=== PATIENT | male | born 1980 | race Hispanic/Latino ===

== ENCOUNTER 2018-05-15 16:15 | Emergency (ER) | payer SELFPAY ==
[2018-05-15] MEDS ORDERED: ATIVAN ONE (16:22)
[2018-05-15] MEDS ORDERED: KEPPRA 1,000 MG/NS 0.75% 100ML 1,000 MG/100 ML BAG IV ONE (16:41)
[2018-05-15] MEDS ORDERED: NACL 0.9% 1000 ML 1,000 ML IV ONE (16:41)
--- NOTE | 2018-05-15 16:41 | Emergency Department Report ---
ED Seizure HPI - General Chief Complaint: Seizure Stated Complaint: SEIZURE Time Seen by Provider: 05/15/18 16:31 Source: patient, EMS Mode of arrival: Stretcher Limitations: Altered Mental Status - History of Present Illness Initial Comments: Patient was brought in by the EMS with seizure activity. Patient was at [facility] where he was put on 1013 for suicidal ideation. MD Complaint: seizure -: Sudden Description of Episode: loss of consciousness, tonic-clonic movement Witnessed:: Yes Trauma: No Seizure History: known seizure disorder, history of withdrawal se Possible Precipitating Event: drug use, medication Associated Symptoms: denies other symptoms Treatments Prior to Arrival: benzodiazepines - Related Data Allergies Allergy/AdvReac Type Severity Reaction Status Date / Time chlorpromazine Allergy Unknown Verified 05/15/18 16:44 [From Thorazine] haloperidol [From Haldol] Allergy Unknown Verified 05/15/18 16:44 phenytoin [From Dilantin] Allergy Rash Verified 05/15/18 16:44 Penicillins AdvReac Rash Verified 05/15/18 16:44 ED Review of Systems ROS: Stated complaint: SEIZURE Other details as noted in HPI Comment: All other systems reviewed and negative Constitutional: denies: chills, fever Eyes: denies: eye pain ENT: denies: ear pain Respiratory: denies: cough, shortness of breath Cardiovascular: denies: chest pain, palpitations Endocrine: no symptoms reported Gastrointestinal: denies: abdominal pain, nausea, vomiting, diarrhea Genitourinary: denies: urgency, dysuria Musculoskeletal: as per HPI Skin: as per HPI Neurological: denies: headache, weakness Psychiatric: denies: anxiety, depression Hematological/Lymphatic: denies: easy bleeding, easy bruising ED Physical Exam - General Limitations: Altered Mental Status General appearance: in no apparent distress - Head Head exam: Present: atraumatic, normocephalic, normal inspection - Eye Eye exam: Present: normal appearance, PERRL, EOMI Pupils: Present: normal accommodation - ENT ENT exam: Present: normal exam, normal orophraynx, mucous membranes moist - Neck Neck exam: Present: normal inspection, full ROM. Absent: tenderness - Respiratory Respiratory exam: Present: normal lung sounds bilaterally. Absent: respiratory distress, wheezes, rales, rhonchi, stridor - Cardiovascular Cardiovascular Exam: Present: regular rate, normal rhythm, normal heart sounds - GI/Abdominal GI/Abdominal exam: Present: soft, normal bowel sounds. Absent: distended, tenderness, guarding, rebound, rigid - Extremities Exam Extremities exam: Present: normal inspection, full ROM, normal capillary refill - Back Exam Back exam: Present: normal inspection, full ROM. Absent: tenderness - Neurological Exam Neurological exam: Present: alert, oriented X3, CN II-XII intact - Psychiatric Psychiatric exam: Present: flat affect, suicidal ideation. Absent: homicidal ideation - Skin Skin exam: Present: warm, dry, intact, normal color ED Course Vital Signs 05/15/18 16:33 Temperature 98.3 F Pulse Rate 84 Respiratory 14 Rate Blood Pressure 126/81 O2 Sat by Pulse 98 Oximetry - Reevaluation(s) Reevaluation #1: 05/15/18 18:09 Patient is medically clear for psychiatric evaluation. ED Medical Decision Making - Lab Data Result diagrams: 05/15/18 16:52 05/15/18 16:52 - EKG Data -: EKG Interpreted by Me EKG shows normal: sinus rhythm Rate: normal (78) - EKG Data When compared to previous EKG there are: previous EKG unavailable Interpretation: LVH, other (No STEMI) - Radiology Data Radiology results: report reviewed, image reviewed - Medical Decision Making Seizure. Suicide Ideation. Critical care attestation.: If time is entered above; I have spent that time in minutes in the direct care of this critically ill patient, excluding procedure time. ED Disposition Clinical Impression: Seizure, Suicide ideation Disposition: DC/TX-65 PSY HOSP/PSY UNIT Is pt being admited?: No Does the pt Need Aspirin: No Condition: Stable Referrals: PRIMARY CARE, [Primary Care Provider] - 3-5 Days Time of Disposition: 18:03
[2018-05-15 16:43] VITALS: BP 126/81
[2018-05-15 17:24] LABS: Basophils # (Auto) 0.1 K/mm3 (0.0-0.1); Basophils % (Auto) 1.1 % (0.0-1.8); Eosinophils # (Auto) 0.2 K/mm3 (0.0-0.4); Eosinophils % (Auto) 4.3 % (0.0-4.3); Hematocrit 35.8 % (35.5-45.6); Mean Corpuscular HGB Conc 34 % (32-34); Mean Corpuscular Hemoglobin 29 pg (28-32); Mean Corpuscular Volume 86 fl (84-94); Monocytes # (Auto) 0.3 K/mm3 (0.0-0.8); Monocytes % (Auto) 6.1 % (0.0-7.3); Platelet Count 167 K/mm3 (140-440); Red Blood Count 4.16 M/mm3 (3.65-5.03)
[2018-05-15 17:36] LABS: Alanine Aminotransferase 21 units/L (7-56); Albumin 3.7 g/dL (3.9-5); BUN/Creatinine Ratio 11; Blood Urea Nitrogen 9 mg/dL (9-20); Calcium 8.6 mg/dL (8.4-10.2); Hemolysis Index 7
--- NOTE | 2018-05-15 18:59 | XRay Report ---
FINAL REPORT PROCEDURE: XR CHEST 1V AP TECHNIQUE: Chest radiograph anteroposterior view. HISTORY: Seizure. COMPARISON: No prior studies are available for comparison. FINDINGS: Heart: Normal. Mediastinum/Vessels: Normal. Lungs/Pleural space: Normal. Bony thorax: No acute osseous abnormality. Incompletely visualized, 2 screws may span the left proximal humerus. Life support devices: None. IMPRESSION: No radiographic evidence of acute cardiopulmonary disease.
== END 2018-05-15 20:00 ==
LOC: ED 16:15
DX: R56.9 Unspecified convulsions (principal); R45.851 Suicidal ideations; Z88.8 Allergy status to other drugs, medicaments and biological substances; Z88.0 Allergy status to penicillin
CPT/HCPCS: 36415; 71045; 80053; 85025; 93005; 93010; 99285; G0480; J2060; 80320

== ENCOUNTER 2020-02-12 17:16 | Emergency (ER) | payer SELFPAY ==
[2020-02-12] MEDS ORDERED: METOCLOPRAMIDE 10 MG TAB PO ONE (17:49)
[2020-02-12] MEDS ORDERED: levETIRAcetam 500 MG TAB PO ONE (17:49)
[2020-02-12] MEDS ORDERED: GABAPENTIN 400 MG CAP PO ONE (17:49)
--- NOTE | 2020-02-12 17:50 | Emergency Department Report ---
<VALARIE RAJPUT - Last Filed: 02/12/20 19:36> ED Seizure HPI - General Chief Complaint: Seizure Stated Complaint: SEIZURE/FROM ANCHOR Time Seen by Provider: 02/12/20 17:40 Source: patient, EMS (Verbal report received from emergency medical services. EMS documentation not available at time of chart dictation ), RN notes reviewed, old records reviewed Mode of arrival: Stretcher Limitations: No Limitations - History of Present Illness Initial Comments: Patient is a 40-year-old gentleman. He is not known to myself previously. He has a history of polysubstance abuse, currently in rehab on a voluntary basis, history of seizure disorder, supposed to be on Keppra, 1 g twice daily, reports gabapentin, 800 mg 3 times daily, and clonazepam. He ran out of his seizure medications recently. As per EMS verbal report, patient was at detox, had a generalized seizure, which was terminated with Versed. Patient reports mild frontal headache, which is not sudden or thunderclap in nature, and not the worst headache of his life. He denies fever, neck pain, chest pain, abdominal pain, shortness of breath, urinary symptoms, and he denies coronavirus risk factors and exposure. His last seizure was approximately 2 weeks ago. He is not homicidal or suicidal. MD Complaint: seizure -: Sudden Description of Episode: loss of consciousness, tonic-clonic movement -: second(s) Witnessed:: Yes Trauma: No Seizure History: known seizure disorder, other Place: other (Reportedly at rehab) Possible Precipitating Event: other (Noncompliant) Associated Symptoms: other (Mild headache) Treatments Prior to Arrival: benzodiazepines - Related Data Previous Rx's Medication Instructions Recorded Last Taken Type Gabapentin [Neurontin] 800 mg PO TID #90 tablet 02/12/20 Unknown Rx levETIRAcetam [Keppra TAB] 1,000 mg PO BID #60 tab 02/12/20 Unknown Rx Allergies Allergy/AdvReac Type Severity Reaction Status Date / Time chlorpromazine Allergy Unknown Verified 05/15/18 16:44 [From Thorazine] haloperidol [From Haldol] Allergy Unknown Verified 05/15/18 16:44 phenytoin [From Dilantin] Allergy Rash Verified 05/15/18 16:44 ondansetron [From Zofran] AdvReac Rash Verified 02/12/20 18:55 Penicillins AdvReac Rash Verified 05/15/18 16:44 ED Review of Systems Constitutional: denies: fever Eyes: denies: eye discharge ENT: denies: congestion Respiratory: denies: wheezing Cardiovascular: denies: palpitations Gastrointestinal: denies: abdominal pain Genitourinary: denies: dysuria Musculoskeletal: denies: back pain Neurological: headache. denies: as per HPI Psychiatric: denies: homicidal thoughts, suicidal thoughts ED Past Medical Hx - Past Medical History Hx Seizures: Yes - Surgical History Additional Surgical History: L shoulder - Social History Smoking Status: Current Every Day Smoker Substance Use Type: Methamphetamines, Other - Medications Home Medications: Home Medications Medication Instructions Recorded Confirmed Last Taken Type Gabapentin [Neurontin] 800 mg PO TID #90 tablet 02/12/20 Unknown Rx levETIRAcetam [Keppra TAB] 1,000 mg PO BID #60 tab 02/12/20 Unknown Rx ED Physical Exam - General Limitations: No Limitations General appearance: alert, anxious - Head Head exam: Present: atraumatic, normocephalic - Eye Eye exam: Present: normal appearance, PERRL, EOMI, other (Visual acuity intact to finger counting, color perception, reading at a close distance). Absent: nystagmus - ENT ENT exam: Present: normal exam, normal orophraynx, mucous membranes moist, normal external ear exam - Neck Neck exam: Present: normal inspection, full ROM. Absent: tenderness, meningismus - Respiratory Respiratory exam: Present: normal lung sounds bilaterally. Absent: respiratory distress - Cardiovascular Cardiovascular Exam: Present: regular rate, normal rhythm, normal heart sounds. Absent: bradycardia, tachycardia, irregular rhythm, systolic murmur, diastolic murmur, rubs, gallop - GI/Abdominal GI/Abdominal exam: Present: soft, normal bowel sounds. Absent: distended, tenderness, guarding, rebound, rigid, pulsatile mass - Rectal Rectal exam: Present: deferred - Extremities Exam Extremities exam: Present: normal inspection, full ROM, other (2+ pulses noted in the bilateral upper and lower extremities. There is no palpable cord. negative Homans sign. Muscular compartments are soft. The pelvis is stable.). Absent: pedal edema, calf tenderness - Back Exam Back exam: Present: normal inspection, full ROM. Absent: CVA tenderness (L), paraspinal tenderness, vertebral tenderness - Neurological Exam Neurological exam: Present: alert, oriented X3, other (No facial droop. Tongue midline. Extraocular movements intact bilaterally. Facial sensation intact to light touch in V1, V2, V3 distribution bilaterally. 5 and a 5 strength in 4 extremities. Sensation intact to light touch in 4 extremities.). Absent: motor sensory deficit - Psychiatric Psychiatric exam: Present: normal affect, normal mood, anxious. Absent: homicidal ideation, suicidal ideation - Skin Skin exam: Present: warm, dry, intact, normal color. Absent: rash ED Course - Reevaluation(s) Reevaluation #1: 02/12/20 18:02 Differential diagnosis, including but not limited to: Seizure, noncompliance, medication refill, electrolyte derangement, migraine headache, tension headache, cluster headache Assessment and plan: 40-year-old gentleman who is clinically sober at this time, with a GCS of 15, no nuchal rigidity or meningeal signs, with report of seizure, likely secondary to running out of his medications. He is afebrile with reassuring vital signs, and in no acute distress. We will obtain EKG, screening laboratory studies, treat his symptoms, give him Keppra by mouth, gabapentin by mouth, and reassess. 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 aware 02/07/2020 3 02/07/2020 BUPRENORPHIN-NALOXON 8-2 MG SL 10.0 4 CH MID [id number] [facility] (5326) 0 20.0 mg Other GA 02/07/2020 3 02/07/2020 IRUXDI-OXLAIJWX-ZTKA 50-325-40 5.0 1 CH MID [id number] [place] (5326) 0 Other GA 02/07/2020 3 02/07/2020 CLONAZEPAM 2 MG TABLET 10.0 5 CH MID [id number] [place] (5326) 0 Other 01/28/2020 2 01/28/2020 LORAZEPAM 2 MG TABLET 4.0 1 HAS [id number] MALCOLM (8395) 0 Comm Ins 01/28/2020 2 01/28/2020 LORAZEPAM 1 MG TABLET 4.0 1 HAS [id number] MALCOLM (8395) 0 Comm Ins 01/28/2020 2 01/28/2020 LORAZEPAM 2 MG TABLET 6.0 1 HAS [id number] MALCOLM (8395) 0 Comm Ins 01/28/2020 2 01/28/2020 LORAZEPAM 2 MG TABLET 3.0 1 HAS [id number] MALCOLM (8395) 0 Comm Ins 01/25/2020 8 01/25/2020 CLONAZEPAM 2 MG TABLET [address] SYS [id number] KROGE (6308) 0 Comm Ins 01/13/2020 5 01/13/2020 CLONAZEPAM 1 MG TABLET 6.0 2 KR COL [id number] WALGR (1308) 0 Comm Ins 12/19/2019 7 11/27/2019 BUPRENORP-NALOX 8-2 MG SL FILM 12.0 3 [place] CAR [id number] JUAN M (0919) 2 32.0 mg Private Pay 12/17/2019 7 11/27/2019 BUPRENORP-NALOX 8-2 MG SL FILM 14.0 4 WA CAR [id number] JUAN M (0919) 1 28.0 mg Private Pay 12/13/2019 7 11/27/2019 BUPRENORP-NALOX 8-2 MG SL FILM 14.0 4 WA CAR [id number] JUAN M (0919) 0 28.0 mg Private Pay 12/12/2019 7 12/04/2019 CLONAZEPAM 2 MG TABLET 28.0 7 SI KOS [id number] JUAN M (0919) 0 Private Pay 11/28/2019 9 11/27/2019 BUPRENORP-NALOX 8-2 MG SL FILM 2.0 1 WA CAR [id number] YOGI (1833) 0 16.0 mg Private Pay 11/28/2019 9 11/27/2019 LORAZEPAM 1 MG TABLET 42.0 14 LL COL [id number] YOGI (1833) 0 Private Pay 10/25/2019 5 10/23/2019 CLONAZEPAM 2 MG TABLET 90.0 30 TAM PAT [id number] WALGR (3672) 0 Comm Ins 10/23/2019 4 10/23/2019 METHADONE HCL 10 MG TABLET 28.0 7 TAM PAT [id number] PUBLI (1823) 0 120.0 MME Comm Ins 10/08/2019 7 10/08/2019 CLONAZEPAM 2 MG TABLET 60.0 30 PA DINO [id number] JUAN M (5746) 0 Private Pay 10/05/2019 1 10/05/2019 CLONAZEPAM 2 MG TABLET 10.0 5 PA DINO [id number] NE GE (6618) 0 Other [place] 09/26/2019 10 09/16/2019 BUPRENORPHN-NALOXN 2-0.5 MG SL 48.0 16 SH [place] [id number] JUAN M (6296) 0 6.0 mg Private Pay [place] 09/26/2019 10 09/16/2019 CLONAZEPAM 0.5 MG TABLET 90.0 6 SH [place] [id number] JUAN M (6296) 0 Private Pay [place] 09/25/2019 5 09/16/2019 BUPRENORPHN-NALOXN 2-0.5 MG SL 21.0 7 SH [place] [id number] WALGR (7146) 0 6.0 mg Comm Ins [place] 09/25/2019 5 09/16/2019 CLONAZEPAM 0.5 MG TABLET 90.0 15 SH [place] [id number] WALGR (7146) 0 Comm Ins [place] Reevaluation #3: 02/12/20 19:36 Patient resting comfortably for hours, and in no acute distress without recurrent convulsive event. Laboratory studies unremarkable. CT scan brain pending at this time. Care will be transferred to the overnight physician, Dr. Torrez, to follow-up on CT scan of the brain, and if no acute findings noted, which we anticipate, discharge with outpatient follow-up ED Medical Decision Making - Lab Data Result diagrams: 02/12/20 18:15 02/12/20 18:15 Vital Signs 02/12/20 18:10 Temperature 98.1 F Pulse Rate 75 Respiratory 19 Rate Blood Pressure 124/95 Blood Pressure 124/95 [Right] O2 Sat by Pulse 100 Oximetry Vital Signs 02/12/20 02/12/20 02/12/20 18:03 18:10 18:16 Temperature 98.1 F Pulse Rate 75 77 Respiratory 19 9 L Rate Blood Pressure 124/95 124/95 Blood Pressure 124/95 [Right] O2 Sat by Pulse 98 100 100 Oximetry 02/12/20 02/12/20 18:30 18:46 Temperature Pulse Rate 75 97 H Respiratory 20 12 Rate Blood Pressure 124/95 124/95 Blood Pressure [Right] O2 Sat by Pulse 99 100 Oximetry Lab Results 02/12/20 02/12/20 02/12/20 Range/Units 18:15 18:15 18:15 Hgb (11.8-15.2) gm/dl Hct (35.5-45.6) % Plt Count (140-440) K/mm3 Sodium 141 (137-145) mmol/L Potassium 4.9 (3.6-5.0) mmol/L Chloride 100.3 (98-107) mmol/L Carbon Dioxide 27 (22-30) mmol/L Anion Gap 19 mmol/L BUN 12 (9-20) mg/dL Creatinine 0.8 (0.8-1.5) mg/dL Estimated GFR > 60 ml/min BUN/Creatinine Ratio 15 % Glucose 91 (75-100) mg/dL Calcium 9.5 (8.4-10.2) mg/dL Magnesium 2.20 (1.7-2.3) mg/dL Total Creatine Kinase 119 (55-170) units/L Salicylates < 0.3 L (2.8-20.0) mg/dL Acetaminophen < 5.0 L (10.0-30.0) ug/mL 02/12/20 Range/Units 18:15 Hgb 11.6 L (11.8-15.2) gm/dl Hct 36.8 (35.5-45.6) % Plt Count 331 (140-440) K/mm3 Sodium (137-145) mmol/L Potassium (3.6-5.0) mmol/L Chloride (98-107) mmol/L Carbon Dioxide (22-30) mmol/L Anion Gap mmol/L BUN (9-20) mg/dL Creatinine (0.8-1.5) mg/dL Estimated GFR ml/min BUN/Creatinine Ratio % Glucose (75-100) mg/dL Calcium (8.4-10.2) mg/dL Magnesium (1.7-2.3) mg/dL Total Creatine Kinase (55-170) units/L Salicylates (2.8-20.0) mg/dL Acetaminophen (10.0-30.0) ug/mL - EKG Data -: EKG Interpreted by Me EKG shows normal: sinus rhythm Rate: normal - EKG Data 02/12/20 18:36 The EKG today shows a sinus rhythm, 72 bpm, with a left axis deviation, left ant erior fascicular block, normal intervals, prior EKG from April 2018, with the exception of new onset left axis deviation. - Radiology Data Radiology results: pending ED Disposition Clinical Impression: Breakthrough seizure Disposition: DC/TX-65 PSY HOSP/PSY UNIT Is pt being admited?: No Does the pt Need Aspirin: No Condition: Stable Additional Instructions: Do not drive or operate motor vehicles for the next 6 months, or until cleared to do so by a primary care doctor or a neurologist. Follow-up with a primary care doctor or neurologist within the next 5 to 7 days. Take the seizure medication as directed. Please return to the emergency room right away with recurrent seizure, new headache, worsening headache, change headache, projectile vomiting, change in mental status, confusion, inability to tolerate liquid feeds, new, worsened or different symptoms not present on the initial emergency room evaluation. Please continue current outpatient medications otherwise. Prescriptions: levETIRAcetam [Keppra TAB] 1,000 mg PO BID #60 tab Gabapentin [Neurontin] 800 mg PO TID #90 tablet Referrals: JEOVANY CARTWRIGHT MD [Staff Physician] - 3-5 Days JEAN CASTELLANOS MD [Referring] - 3-5 Days <FRANCISCA TORREZ - Last Filed: 02/12/20 21:18> ED Review of Systems ROS: Stated complaint: SEIZURE/FROM ANCHOR Other details as noted in HPI ED Course Vital Signs 02/12/20 02/12/20 02/12/20 18:03 18:10 18:16 Temperature 98.1 F Pulse Rate 75 77 Respiratory 19 9 L Rate Blood Pressure 124/95 124/95 Blood Pressure 124/95 [Right] O2 Sat by Pulse 98 100 100 Oximetry 02/12/20 02/12/20 18:30 18:46 Temperature Pulse Rate 75 97 H Respiratory 20 12 Rate Blood Pressure 124/95 124/95 Blood Pressure [Right] O2 Sat by Pulse 99 100 Oximetry ED Medical Decision Making - Lab Data Result diagrams: 02/12/20 18:15 02/12/20 18:15 - Radiology Data [facility] [address] [place] [address] Cat Scan Report Signed Patient: VIJAY PICHARDO MR#: [id number] : 1980 Acct:[id number] Age/Sex: 40 / M ADM Date: 02/12/20 Loc: ED Attending Dr: Ordering Physician: VALARIE RAJPUT MD Date of Service: 02/12/20 Procedure(s): CT head/brain wo con Accession Number(s): [id number] cc: VALARIE RAJPUT MD CT HEAD WITHOUT CONTRAST INDICATION / CLINICAL INFORMATION: Seizure. Headache. TECHNIQUE: All CT scans at this location are performed using CT dose reduction for ALARA by means of automated exposure control. COMPARISON: None available. FINDINGS: HEMORRHAGE: No evidence of intracranial hemorrhage or extra-axial fluid collection. EXTRA-AXIAL SPACES: Cortical sulci, sylvian fissures and basilar cisterns have an unremarkable appearance. VENTRICULAR SYSTEM: The ventricular system is of normal size and configuration. CEREBRAL PARENCHYMA: No areas of abnormal brain parenchymal attenuation are identified. There is no indication of recent infarction. MIDLINE SHIFT OR HERNIATION: There is no mass effect. CEREBELLUM / BRAINSTEM: Brainstem and cerebellum have an unremarkable appearance. INTRACRANIAL VESSELS:No abnormalities are identified on this noncontrast head CT. ORBITS: visualized portions of the orbits have an unremarkable appearance. SOFT TISSUES of HEAD: No significant abnormality. CALVARIUM: Evaluation of bone windows reveals no abnormalities. PARANASAL SINUSES / MASTOID AIR CELLS: Paranasal sinuses are free from inflammatory mucosal disease. Mastoid air cells are normally pneumatized. Evaluation of the facial bones is remarkable for changes of ORIF at the left maxilla ADDITIONAL FINDINGS: None. IMPRESSION: 1. No intracranial abnormalities are identified on head CT without contrast. Signer Name: Eloy Patel MD Signed: 02/12/2020 8:53 PM Workstation Name: [id number] - Medical Decision Making Patient was loaded with seizure medications. Head CT is unremarkable. Patient is medically cleared at this time to return back to [facility]. Critical care attestation.: If time is entered above; I have spent that time in minutes in the direct care of this critically ill patient, excluding procedure time. ED Disposition Time of Disposition: 21:18
[2020-02-12 18:13] VITALS: BP 124/95
[2020-02-12] MEDS ORDERED: BUTALB/ACETAMINOPHEN/CAFFEINE TAB PO ONE (18:52)
[2020-02-12 18:53] LABS: Hematocrit 36.8 % (35.5-45.6); Hemoglobin 11.6 gm/dl (11.8-15.2)
[2020-02-12 19:12] LABS: BUN/Creatinine Ratio 15; Blood Urea Nitrogen 12 mg/dL (9-20); Calcium 9.5 mg/dL (8.4-10.2); Hemolysis Index 18
--- NOTE | 2020-02-12 20:53 | Cat Scan Report ---
CT HEAD WITHOUT CONTRAST INDICATION / CLINICAL INFORMATION: Seizure. Headache. TECHNIQUE: All CT scans at this location are performed using CT dose reduction for ALARA by means of automated e xposure control. COMPARISON: None available. FINDINGS: HEMORRHAGE: No evidence of intracranial hemorrhage or extra-axial fluid collection. EXTRA-AXIAL SPACES: Cortical sulci, sylvian fissures and basilar cisterns have an unremarkable appear ance. VENTRICULAR SYSTEM: The ventricular system is of normal size and configuration. CEREBRAL PARENCHYMA: No areas of abnormal brain parenchymal attenuation are identified. There is no i ndication of recent infarction. MIDLINE SHIFT OR HERNIATION: There is no mass effect. CEREBELLUM / BRAINSTEM: Brainstem and cerebellum have an unremarkable appearance. INTRACRANIAL VESSELS:No abnormalities are identified on this noncontrast head CT. ORBITS: visualized portions of the orbits have an unremarkable appearance. SOFT TISSUES of HEAD: No significant abnormality. CALVARIUM: Evaluation of bone windows reveals no abnormalities. PARANASAL SINUSES / MASTOID AIR CELLS: Paranasal sinuses are free from inflammatory mucosal disease. Mastoid air cells are normally pneumatized. Evaluation of the facial bones is remarkable for changes of ORIF at the left maxilla ADDITIONAL FINDINGS: None. IMPRESSION: 1. No intracranial abnormalities are identified on head CT without contrast. Signer Name: Eloy Patel MD Signed: 02/12/2020 8:53 PM Workstation Name: [id number]
== END 2020-02-12 22:29 ==
LOC: ED 17:16
DX: R56.9 Unspecified convulsions (principal)
CPT/HCPCS: 36415; 70450; 80048; 80320; 82550; 83735; 85014; 85018; 85049; 93005; G0480

== ENCOUNTER 2020-02-19 16:03 | Emergency (ER) | payer SELFPAY ==
[2020-02-19] MEDS ORDERED: LIDOCAINE (4%) 40 MG/ML TOPICAL SOLN 50 ML BOTTLE TP ONE (16:52)
[2020-02-19] MEDS ORDERED: GABAPENTIN 400 MG CAP PO ONE (16:53)
[2020-02-19] MEDS ORDERED: BUTALB/ACETAMINOPHEN/CAFFEINE TAB PO ONE (16:53)
[2020-02-19] MEDS ORDERED: levETIRAcetam 500 MG TAB PO ONE (16:53)
[2020-02-19] MEDS ORDERED: METOCLOPRAMIDE 10 MG TAB PO ONE (16:53)
--- NOTE | 2020-02-19 17:12 | Emergency Department Report ---
ED Seizure HPI - General Chief Complaint: Seizure Stated Complaint: SEIZURE Time Seen by Provider: 02/19/20 16:42 Source: patient, EMS (Verbal report received from emergency medical services. EMS documentation not available at time of chart dictation ), RN notes reviewed, old records reviewed Mode of arrival: Stretcher Limitations: No Limitations - History of Present Illness Initial Comments: The patient is a 40-year-old gentleman. I have evaluated him in the past. Denies fever, cough, coronavirus symptomatology. He has a history of narcotic use, benzodiazepine use and abuse, and is currently at a psychiatric hospital on a voluntary basis for detox and withdrawal. His prescriptions currently include Excedrin, baclofen, Suboxone, gabapentin, Keppra, and Paxil. He also takes Seroquel, and Benadryl. He reports that he was previously maintained on clonazepam, in addition to the aforementioned antiepileptic drugs, as a seizure therapy maintenance, but his clonazepam was discontinued secondary to him being in detox. He is sent to the emergency room today for breakthrough seizure. Apparently, the patient had 1 seizure at his detox facility, which as per verbal report from EMS, was terminated with intramuscular Ativan, and then in the ambulance, with EMS, had a generalized tonic-clonic seizure, lasting around 90 seconds, without trauma, which was terminated with intranasal Ativan. The patient endorses compliance with his medications, with the exception of Neurontin/gabapentin, as he missed a dose yesterday. He has a frontal retro- orbital headache which is bilateral, similar to prior migraines, not described as sudden or thunderclap in nature, not maximal in intensity, not the worst headache of his life. He denies additional injuries He did not hit his head. He does endorse some nausea, cramping and diarrhea, which he attributes to the "detox process." He endorses compliance with his Suboxone. MD Complaint: seizure -: Sudden Description of Episode: loss of consciousness, tonic-clonic movement -: second(s) Witnessed:: Yes Trauma: No Seizure History: known seizure disorder, compliant with medication Place: other Possible Precipitating Event: none Associated Symptoms: other (As per history of present illness) Treatments Prior to Arrival: benzodiazepines - Related Data Previous Rx's Medication Instructions Recorded Last Taken Type Gabapentin [Neurontin] 800 mg PO TID #90 tablet 02/12/20 Unknown Rx levETIRAcetam [Keppra TAB] 1,000 mg PO BID #60 tab 02/12/20 Unknown Rx Gabapentin 100 mg PO Q8HR #90 capsule 02/19/20 Unknown Rx Gabapentin [Neurontin] 800 mg PO TID #90 tablet 02/19/20 Unknown Rx Allergies Allergy/AdvReac Type Severity Reaction Status Date / Time chlorpromazine Allergy Unknown Verified 05/15/18 16:44 [From Thorazine] haloperidol [From Haldol] Allergy Unknown Verified 05/15/18 16:44 phenytoin [From Dilantin] Allergy Rash Verified 05/15/18 16:44 ondansetron [From Zofran] AdvReac Rash Verified 02/12/20 18:55 Penicillins AdvReac Rash Verified 05/15/18 16:44 ED Review of Systems ROS: Stated complaint: SEIZURE Other details as noted in HPI Constitutional: denies: fever Eyes: denies: eye discharge ENT: denies: congestion Respiratory: denies: cough Cardiovascular: as per HPI. denies: chest pain Gastrointestinal: nausea, vomiting, diarrhea Genitourinary: denies: dysuria Musculoskeletal: myalgia Skin: denies: lesions Neurological: headache. denies: weakness, numbness, paresthesias, confusion Psychiatric: anxiety ED Past Medical Hx - Past Medical History Hx Seizures: Yes - Surgical History Additional Surgical History: L shoulder - Social History Smoking Status: Current Every Day Smoker Substance Use Type: Methamphetamines, Other - Medications Home Medications: Home Medications Medication Instructions Recorded Confirmed Last Taken Type Gabapentin [Neurontin] 800 mg PO TID #90 tablet 02/12/20 Unknown Rx levETIRAcetam [Keppra TAB] 1,000 mg PO BID #60 tab 02/12/20 Unknown Rx Gabapentin 100 mg PO Q8HR #90 capsule 02/19/20 Unknown Rx Gabapentin [Neurontin] 800 mg PO TID #90 tablet 02/19/20 Unknown Rx ED Physical Exam - General Limitations: No Limitations General appearance: alert, in no apparent distress - Head Head exam: Present: atraumatic, normocephalic - Eye Eye exam: Present: normal appearance, PERRL, EOMI. Absent: nystagmus - ENT ENT exam: Present: normal exam, normal orophraynx, mucous membranes moist, normal external ear exam - Neck Neck exam: Present: normal inspection, full ROM. Absent: tenderness, meningismus - Respiratory Respiratory exam: Present: normal lung sounds bilaterally. Absent: respiratory distress - Cardiovascular Cardiovascular Exam: Present: regular rate, normal rhythm, normal heart sounds. Absent: bradycardia, tachycardia, irregular rhythm, systolic murmur, diastolic murmur, rubs, gallop - GI/Abdominal GI/Abdominal exam: Present: soft. Absent: distended, tenderness, guarding, rebound, rigid, pulsatile mass - Rectal Rectal exam: Present: deferred - Extremities Exam Extremities exam: Present: normal inspection, full ROM, other (2+ pulses noted in the bilateral upper and lower extremities. There is no palpable cord. negative Homans sign. Muscular compartments are soft. The pelvis is stable.). Absent: pedal edema, calf tenderness - Back Exam Back exam: Present: normal inspection, full ROM. Absent: tenderness, CVA tenderness (R), CVA tenderness (L), paraspinal tenderness, vertebral tenderness - Neurological Exam Neurological exam: Present: alert, normal gait, other (No facial droop. Tongue midline. Extraocular movements intact bilaterally. Facial sensation intact to light touch in V1, V2, V3 distribution bilaterally. 5 and a 5 strength in 4 extremities. Sensation intact to light touch in 4 extremities.). Absent: motor sensory deficit - Psychiatric Psychiatric exam: Present: anxious - Skin Skin exam: Present: warm, dry, intact, normal color. Absent: rash ED Course Vital Signs 02/19/20 02/19/20 02/19/20 17:59 18:01 19:40 Temperature 98.8 F 98.8 F 98.4 F Pulse Rate 69 69 90 Respiratory 16 16 18 Rate Blood Pressure 125/85 Blood Pressure 125/86 111/59 [Left] O2 Sat by Pulse 98 98 95 Oximetry - Reevaluation(s) Reevaluation #1: 02/19/20 17:11 Differential diagnosis, including but not limited to: Breakthrough seizure, medication interaction, opioid withdrawal Assessment and plan: 40-year-old gentleman, currently in detox therapy, maintained on Suboxone, with a complaint of headache, migraine, breakthrough seizure, history of nausea and vomiting. He is afebrile, with reassuring vital signs, clinically sober, walking with a steady gait, with a GCS of 15. I saw him last week for similar symptomatology, he had an unremarkable work-up, including a negative CT scan of the brain. We will treat his symptoms, obtain appropriate laboratory studies to assess for rhabdomyolysis, electrolyte deficiencies, and an EKG. I will also discuss with neurology to determine whether or not we should uptitrate his antiepileptic drugs, and we will also evaluate whether or not his psychiatric medications may be discontinued, as they may be contributing to lowering the seizure threshold. He is not actively seizing at this time. Reevaluation #2: 02/19/20 17:18 Discussed history, physical, prior laboratory studies and imaging studies with our neurologist on-call, Dr. Crow Duenas She is going to beam in and evaluate the patient, and make recommendations Reevaluation #3: 02/19/20 17:57 Discussed with neurology on-call, Dr. Krishan Kinney has personally evaluated the patient. It is recommended that we observe the patient in the emergency room for at least 8 hours. Patient will need to follow-up for an outpatient EEG. It is recommended that the patient continue his Keppra, and increase gabapentin to 900 mg 3 times daily. Apparently, the patient is markedly intolerant or allergic to most antiepileptic drugs, and unfortunately, secondary to social circumstances, we will not be able to afford some of the newer generation antiepileptic drugs. However, we have a number of local neurology doctors in outpatient offices in clinic, who are always amenable to seeing patients as an outpatient to follow- up. 02/19/20 19:05 Reevaluation #4: 02/19/20 19:05 Reassessed. Walking with a steady gait. No convulsive events noted. No acute distress. Resting comfortably. Reevaluation #5: 02/19/20 21:10 Hour 5 of observation, no acute events, decompensations, or seizures or convulsions. Resting comfortably in stretcher, and in no acute distress. 02/20/20 00:01 Patient reassessed multiple times. Resting comfortably, and in no acute distre ss. No additional convulsive events noted. Vital signs have remained stable. Suitable for discharge with outpatient follow-up. ED Medical Decision Making - Lab Data Result diagrams: 02/19/20 17:04 02/19/20 17:04 Lab Results 02/19/20 02/19/20 Range/Units 17:04 17:04 Hgb 11.7 L (11.8-15.2) gm/dl Hct 35.7 (35.5-45.6) % Sodium 141 (137-145) mmol/L Potassium 3.9 (3.6-5.0) mmol/L Chloride 102.0 (98-107) mmol/L Carbon Dioxide 24 (22-30) mmol/L Anion Gap 19 mmol/L BUN 11 (9-20) mg/dL Creatinine 0.7 L (0.8-1.5) mg/dL Estimated GFR > 60 ml/min BUN/Creatinine Ratio 16 % Glucose 86 (75-100) mg/dL Calcium 9.2 (8.4-10.2) mg/dL Magnesium 2.20 (1.7-2.3) mg/dL Total Creatine Kinase 95 (55-170) units/L - EKG Data -: EKG Interpreted by Me EKG shows normal: sinus rhythm Rate: normal - EKG Data 02/19/20 17:56 Sinus rhythm, bradycardia, 60 bpm, normal axis, high left ventricular voltage, the EKG is not a STEMI. Unchanged from prior EKG, with the exception of resolution of left axis deviation - Radiology Data Radiology results: report reviewed, image reviewed Prior CT scan is reviewed and appreciated Critical care attestation.: If time is entered above; I have spent that time in minutes in the direct care of this critically ill patient, excluding procedure time. ED Disposition Clinical Impression: History of headache, History of seizure, Seizure Disposition: [id number]/TX-[id number] PSY HOSP/PSY UNIT Is pt being admited?: No Does the pt Need Aspirin: No Condition: Good Additional Instructions: Do not drive or operate motor vehicles for the next 6 months. Please follow-up with a local neurology doctor within the next 5 to 7 days for outpatient follow- up and evaluation. An EEG was recommended by the neurology specialist, an outpatient neurologist should be able to organize this and set this up. For the patient's convenience, numerous local neurology doctors have been listed for follow-up. Continue Keppra medication as directed and prescribed. Increase gabapentin to 900 mg 3 times daily. Recommend de-escalation of Suboxone as quickly as possible, as this medication may decrease the seizure threshold. Please consult with your counseling specialist on Suboxone de-escalation. Please return to the emergency room right away with new pain, worsening pain, migration of pain, projectile vomiting, change in mental status, confusion, inability to tolerate liquid feeds, new, worsened or different symptoms not present on the initial emergency room evaluation peer Prescriptions: Gabapentin 100 mg PO Q8HR #90 capsule Gabapentin [Neurontin] 800 mg PO TID #90 tablet Referrals: JEAN CASTELLANOS MD [Referring] - 3-5 Days LINDSEY SHER MD [Staff Physician] - 3-5 Days MAIKOL BLOOD MD [Referring] - 3-5 Days ABRAN MOSELEY MD [Referring] - 3-5 Days ЕЛЕНА SOSA MD [Staff] - 3-5 Days DIDIER WORTHINGTON MD [Staff Physician] - 3-5 Days ANAI MARIE MD [Staff Physician] - 3-5 Days BRYSON SAHA MD [Staff Physician] - 3-5 Days
[2020-02-19 17:27] LABS: Hematocrit 35.7 % (35.5-45.6); Hemoglobin 11.7 gm/dl (11.8-15.2)
[2020-02-19 17:37] LABS: BUN/Creatinine Ratio 16; Blood Urea Nitrogen 11 mg/dL (9-20); Calcium 9.2 mg/dL (8.4-10.2); Hemolysis Index 6
--- NOTE | 2020-02-19 18:07 | Emergency Department Report ---
ED Seizure HPI - General Chief Complaint: Seizure Stated Complaint: SEIZURE Time Seen by Provider: 02/19/20 16:42 Source: patient, EMS (Verbal report received from emergency medical services. EMS documentation not available at time of chart dictation ), RN notes reviewed, old records reviewed Mode of arrival: Stretcher Limitations: No Limitations - History of Present Illness MD Complaint: seizure Trauma: No Seizure History: known seizure disorder, compliant with medication Place: other Associated Symptoms: other (As per history of present illness) Treatments Prior to Arrival: benzodiazepines - Related Data Previous Rx's Medication Instructions Recorded Last Taken Type Gabapentin [Neurontin] 800 mg PO TID #90 tablet 02/12/20 Unknown Rx levETIRAcetam [Keppra TAB] 1,000 mg PO BID #60 tab 02/12/20 Unknown Rx Allergies Allergy/AdvReac Type Severity Reaction Status Date / Time chlorpromazine Allergy Unknown Verified 05/15/18 16:44 [From Thorazine] haloperidol [From Haldol] Allergy Unknown Verified 05/15/18 16:44 phenytoin [From Dilantin] Allergy Rash Verified 05/15/18 16:44 ondansetron [From Zofran] AdvReac Rash Verified 02/12/20 18:55 Penicillins AdvReac Rash Verified 05/15/18 16:44 ED Review of Systems ROS: Stated complaint: SEIZURE Other details as noted in HPI Constitutional: denies: fever Eyes: denies: eye discharge ENT: denies: congestion Respiratory: denies: cough Cardiovascular: as per HPI. denies: chest pain Gastrointestinal: nausea, vomiting, diarrhea Genitourinary: denies: dysuria Musculoskeletal: myalgia Skin: denies: lesions Neurological: headache. denies: weakness, numbness, paresthesias, confusion Psychiatric: anxiety ED Past Medical Hx - Past Medical History Hx Seizures: Yes - Surgical History Additional Surgical History: L shoulder - Social History Smoking Status: Current Every Day Smoker Substance Use Type: Methamphetamines, Other - Medications Home Medications: Home Medications Medication Instructions Recorded Confirmed Last Taken Type Gabapentin [Neurontin] 800 mg PO TID #90 tablet 02/12/20 Unknown Rx levETIRAcetam [Keppra TAB] 1,000 mg PO BID #60 tab 02/12/20 Unknown Rx ED Physical Exam - General Limitations: No Limitations General appearance: alert, in no apparent distress ED Course - Consultations Consultation #1: 02/19/20 17:54 [facility] Impression: Patient is a 40 yo male with a PMH of epilepsy, heroine abuse discharged this AM from a voluntary inaptient psychiatry rehabilitation program, now on suboxone who p/w two witnessed GTCs. Each lasted several minutes, resolving with Ativan. He has returned to baseline. No current deficits. Complicated psychosocial situation. Limited prior fu with neurology due to cost. He was seen in the ED last week for a breakthrough seizure and started on Keppra 1gm BID, in addition to NTN 800mg TID. Unclear if current events are true electrographic vs PNES events, given severe associated stressors. Recommendations: Increase NTN to 900mg TID, limited efficacy of Keppra in the past. COntinue 1gm BID Failed or intolerant to lamictal, dilantin, depakote, topamax, tegretol, unable to afford newer AEDs including vimpat Suboxone may reduce seizure threshold, recommend tapering doses per psychiatry/water pollution specialist [facility]TH from 02/11 reviewed, NAF. Seizure precautions, including no driving. If patient remains seizure free in the ED as discussed, he will be monitored for at least 8 hours he is cleared for discharge. Close outpt neurology fu within 1 week. Discussed with ED MD Please call with questions CC: seizures. History of Present Illness: Patient is a 40 yo male with a PMH of epilepsy, heroine abuse discharged this AM from a voluntary inaptient psychiatry rehabilitation program, now on suboxone who p/w two witnessed GTCs. Each lasted several minutes, resolving with Ativan. Patient reports he was diagnosed with epilepsy at age 22 years old, he has had inconsistent neurology followup due to incarceration and loss of insurance in the past. This AM, when he stood up witnesses stated he had a GTC. EMS was called from the facility. En route had a second brief GTC resolving with Ativan 1mg IM. Patient has had an associated headache, typical for his seizures and baseline headaches. He generally has a metallic tastw/gustatory aura. He did not have an aura prior to this event. He feels as if he has returned to baseline. Prior AEDs as noted above He finds that NTN amd clonazepam have been the most effective for seizure control. Clonazeoam was discontinued during his rehab. He was on 4mg daily. H/O status in the setting of abrupt discontinuation of seizure medications (cost /loss of insurance) Most recently in September. He has been taking Keppra 1gm BID and NTN 800mg TID this week. Diagnostic Testing: As above Vital Signs: Reviewed Exam: Mental Status: Awake, alert, oriented Naming: Intact Repetition: Intact Speech: fluent Cranial Nerves: Pupils: Equal round and reactive to light Extraocular movements: Intact in all cardinal gaze Ptosis: Absent Visual pollard: Intact to finger counting Facial sensation: Intact to pin and light touch Facial movements: Intact and symmetric Motor Exam: No drift Tremor/Abnormal Movements: Resting tremor: Absent Intention tremor: Absent Postural tremor: Absent Medical Decision Making: - Extensive number of diagnosis or management options are considered above. - Extensive amount of complex data reviewed. - High risk of complication and/or morbidity or mortality are associated with differential diagnostic considerations above. - There may be uncertain outcome and increased probability of prolonged fu nctional impairment or high probability of severe prolonged functional impairment associated with some of these differential diagnosis. Medical Data Reviewed: 1.Data reviewed include clinical labs, radiology, Medical Tests; 2.Tests results discussed w/performing or interpreting physician; 3.Obtaining/reviewing old medical records; 4.Obtaining case history from another source; 5.Independent review of image, tracing or specimen. Patient was informed the Neurology Consult would happen via telehealth (remote video) and consented to receiving care in this manner. ED Medical Decision Making - Lab Data Result diagrams: 02/19/20 17:04 02/19/20 17:04 Critical care attestation.: If time is entered above; I have spent that time in minutes in the direct care of this critically ill patient, excluding procedure time. ED Disposition Clinical Impression: Seizure Disposition: Z- PAT REG,TRIAGED-NO MSE Is pt being admited?: No Condition: Stable Referrals: PRIMARY CARE, [Primary Care Provider] - 3-5 Days
[2020-02-20 00:10] VITALS: BP 129/61
== END 2020-02-20 01:21 ==
LOC: ED 16:03
DX: G40.909 Epilepsy, unspecified, not intractable, without status epilepticus (principal); F17.200 Nicotine dependence, unspecified, uncomplicated; F15.93 Other stimulant use, unspecified with withdrawal; Z79.899 Other long term (current) drug therapy; Z88.0 Allergy status to penicillin; Z88.8 Allergy status to other drugs, medicaments and biological substances
CPT/HCPCS: 36415; 80048; 82550; 83735; 85014; 85018; 93005

== ENCOUNTER 2020-10-10 18:41 | Emergency (ER) | payer SELFPAY ==
[2020-10-10] MEDS ORDERED: levETIRAcetam 1000 MG/NS 0.75% 1,000 MG/100 ML BAG IV ONE (18:57)
[2020-10-10] MEDS ORDERED: LORazepam 2 MG/ML VIAL ONE (18:59)
[2020-10-10] MEDS ORDERED: LORazepam 2 MG/ML VIAL IV ONE (19:05)
--- NOTE | 2020-10-10 19:16 | Emergency Department Report ---
HPI - General Time Seen by Provider: 10/10/20 18:55 - HPI HPI: Room 36 The patient is a 40-year-old male present with a chief complaint of seizure. The patient is currently at [facility] reportedly had 2 separate seizures. The patient was talking upon arrival to the ED per the sitter. Upon my arrival to the room the patient was having another generalized tonic-clonic seizure on the floor. Patient was administered Ativan 2 mg IV and after approximately 2 minutes seizure resolved. Patient postictal ED Past Medical Hx - Past Medical History Hx Seizures: Yes - Surgical History Additional Surgical History: L shoulder - Family History Family history: no significant - Social History Smoking Status: Current Every Day Smoker Substance Use Type: Methamphetamines, Other - Medications Home Medications: Home Medications Medication Instructions Recorded Confirmed Last Taken Type Gabapentin [Neurontin] 800 mg PO TID #90 tablet 02/12/20 Unknown Rx levETIRAcetam [Keppra TAB] 1,000 mg PO BID #60 tab 02/12/20 Unknown Rx Gabapentin 100 mg PO Q8HR #90 capsule 02/19/20 Unknown Rx Gabapentin [Neurontin] 800 mg PO TID #90 tablet 02/19/20 Unknown Rx levETIRAcetam [Keppra TAB] 500 mg PO BID #60 tablet 10/10/20 Unknown Rx ED Review of Systems ROS: Stated complaint: SEIZURES Other details as noted in HPI Comment: Unobtainable due to pts medical conditions Physical Exam - Physical Exam Physical Exam: GENERAL: The patient is well-developed well-nourished male on floor having generalized tonic-clonic seizure. [] HEENT: Normocephalic. Atraumatic. Patient has moist mucous membranes. NECK: Supple. Trachea midline CHEST/LUNGS: Clear to auscultation. There is no respiratory distress noted. HEART/CARDIOVASCULAR: Regular. There is no tachycardia. There is no gallop rub or murmur. ABDOMEN: Abdomen is soft, nontender. Patient has normal bowel sounds. There is no abdominal distention. SKIN: There is no rash. There is no edema. There is no diaphoresis. NEURO: The patient is postictal MUSCULOSKELETAL: There is no evidence of acute injury. ED Course - Reevaluation(s) Reevaluation #1: 10/10/20 20:28 Patient alert and oriented now. Patient complaint of headache. Patient states he usually takes Fioricet for his headaches after seizures. ED Medical Decision Making - Lab Data Result diagrams: 10/10/20 19:09 10/10/20 19:09 Laboratory Tests 10/10/20 10/10/20 19:09 19:09 WBC 5.1 RBC 4.53 Hgb 11.7 L Hct 35.7 MCV 79 L MCH 26 L MCHC 33 RDW 15.7 H Plt Count 220 Lymph % (Auto) 17.1 [place] % (Auto) 6.7 Eos % (Auto) 4.4 H Baso % (Auto) 1.0 Lymph # (Auto) 0.[address] # (Auto) 0.3 Eos # (Auto) 0.2 Baso # (Auto) 0.1 Seg Neutrophils % 70.8 H Seg Neutrophils # 3.6 Sodium 139 Potassium 4.4 Chloride 102.8 Carbon Dioxide 25 Anion Gap 16 BUN 13 Creatinine 0.8 Estimated GFR > 60 BUN/Creatinine Ratio 16 Glucose 106 H Calcium 8.6 Magnesium 2.00 - Radiology Data Radiology results: report reviewed (CT head, CT cervical spine), image reviewed (CT head, CT cervical spine) CT head/brain wo con INDICATION / CLINICAL INFORMATION: 40 years Male; Seizure, fall from bed. TECHNIQUE: Routine CT head without contrast. All CT scans at this location are performed using CT dose reduction for ALARA by means of automated exposure control. COMPARISON: The study is compared to the previous CT of 02/12/2020. FINDINGS: BRAIN / INTRACRANIAL CONTENTS: The brain appears to demonstrate appropriate attenuation without significant interval change from the previous CT. The ventricular system remains within normal limits in size and configuration. There is no clear CT evidence of acute intracranial hemorrhage or significant mass effect. ORBITS: No significant abnormality of visualized orbits. SINUSES / MASTOIDS: There are continued postsurgical changes along the anterior left maxillary sinus with mild residual mucosal thickening. There is also extensive mild mucosal thickening within the ethmoid and left sphenoid sinuses. CRANIOCERVICAL JUNCTION: No significant abnormality. ADDITIONAL FINDINGS: The calvarium appears intact. IMPRESSION: 1. There is no CT evidence of acute intracranial process. Signer Name: Puneet Dos Santos MD Signed: 10/10/2020 6:48 PM Workstation Name: [id number] CT cervical spine wo con INDICATION / CLINICAL INFORMATION: 40 years Male; Seizure, fall from bed. TECHNIQUE: Axial CT images of the cervical spine were obtained. Sagittal and coronal reformatted images were produced. All CT scans at this location are performed using CT dose reduction for ALARA by means of automated exposure control. COMPARISON: The study is compared to the previous CT of 05/04/2019. FINDINGS: POST-SURGICAL CHANGES: None. ALIGNMENT: There is no significant spondylolisthesis involving the cervical spine or significant change from the earlier CT. VERTEBRAE: There is no CT evidence of acute compression fracture. INTRAVERTEBRAL DISCS: The intervertebral disc spaces are fairly well-maintained without CT evidence of significant bony spinal stenosis or neural foraminal narrowing. PARASPINAL SOFT TISSUES: No developing prevertebral soft tissue fluid collections are identified. ADDITIONAL FINDINGS: None. IMPRESSION: 1. There is no CT evidence of acute fracture involving the cervical spine. Signer Name: Puneet Dos Santos MD Signed: 10/10/2020 6:56 PM Workstation Name: [id number] - Differential Diagnosis Seizure, closed head injury, ICH, cervical injury Critical care attestation.: If time is entered above; I have spent that time in minutes in the direct care of this critically ill patient, excluding procedure time. ED Disposition Clinical Impression: Seizure Disposition: DC/TX-65 PSY HOSP/PSY UNIT Is pt being admited?: No Does the pt Need Aspirin: No Condition: Stable Additional Instructions: Return to the emergency department should you develop worsening symptoms, inability to tolerate food or liquids, high fever or any other concerns Prescriptions: levETIRAcetam [Keppra TAB] 500 mg PO BID #60 tablet Referrals: Dr. Kaur, your neurologist [Other] - 3-5 Days Time of Disposition: 20:29
[2020-10-10 19:19] LABS: Basophils # (Auto) 0.1 K/mm3 (0.0-0.1); Eosinophils # (Auto) 0.2 K/mm3 (0.0-0.4); Eosinophils % (Auto) 4.4 % (0.0-4.3); Hematocrit 35.7 % (35.5-45.6); Hemoglobin 11.7 gm/dl (11.8-15.2); Lymphocytes # (Auto) 0.9 K/mm3 (1.2-5.4); Lymphocytes % (Auto) 17.1 % (13.4-35.0); Mean Corpuscular HGB Conc 33 % (32-34); Mean Corpuscular Volume 79 fl (84-94); Monocytes # (Auto) 0.3 K/mm3 (0.0-0.8); Monocytes % (Auto) 6.7 % (0.0-7.3); Platelet Count 220 K/mm3 (140-440); Red Blood Count 4.53 M/mm3 (3.65-5.03); Red Cell Distribution Width 15.7 % (13.2-15.2)
[2020-10-10 19:37] LABS: BUN/Creatinine Ratio 16; Blood Urea Nitrogen 13 mg/dL (9-20); Calcium 8.6 mg/dL (8.4-10.2); Hemolysis Index 6
--- NOTE | 2020-10-10 19:53 | Cat Scan Report ---
CT head/brain wo con INDICATION / CLINICAL INFORMATION: 40 years Male; Seizure, fall from bed. TECHNIQUE: Routine CT head without contrast. All CT scans at this location are performed using CT dos e reduction for ALARA by means of automated exposure control. COMPARISON: The study is compared to the previous CT of 02/12/2020. FINDINGS: BRAIN / INTRACRANIAL CONTENTS: The brain appears to demonstrate appropriate attenuation without signi ficant interval change from the previous CT. The ventricular system remains within normal limits in s ize and configuration. There is no clear CT evidence of acute intracranial hemorrhage or significant mass effect. ORBITS: No significant abnormality of visualized orbits. SINUSES / MASTOIDS: There are continued postsurgical changes along the anterior left maxillary sinus with mild residual mucosal thickening. There is also extensive mild mucosal thickening within the eth moid and left sphenoid sinuses. CRANIOCERVICAL JUNCTION: No significant abnormality. ADDITIONAL FINDINGS: The calvarium appears intact. IMPRESSION: 1. There is no CT evidence of acute intracranial process. Signer Name: Puneet Dos Santos MD Signed: 10/10/2020 7:48 PM Workstation Name: [id number]
--- NOTE | 2020-10-10 20:01 | Cat Scan Report ---
CT cervical spine wo con INDICATION / CLINICAL INFORMATION: 40 years Male; Seizure, fall from bed. TECHNIQUE: Axial CT images of the cervical spine were obtained. Sagittal and coronal reformatted images were pr oduced. All CT scans at this location are performed using CT dose reduction for ALARA by means of aut omated exposure control. COMPARISON: The study is compared to the previous CT of 05/04/2019. FINDINGS: POST-SURGICAL CHANGES: None. ALIGNMENT: There is no significant spondylolisthesis involving the cervical spine or significant solomon ge from the earlier CT. VERTEBRAE: There is no CT evidence of acute compression fracture. INTRAVERTEBRAL DISCS: The intervertebral disc spaces are fairly well-maintained without CT evidence o f significant bony spinal stenosis or neural foraminal narrowing. PARASPINAL SOFT TISSUES: No developing prevertebral soft tissue fluid collections are identified. ADDITIONAL FINDINGS: None. IMPRESSION: 1. There is no CT evidence of acute fracture involving the cervical spine. Signer Name: Puneet Dos Santos MD Signed: 10/10/2020 7:56 PM Workstation Name: [id number]
[2020-10-10] MEDS ORDERED: BUTALB/ACETAMINOPHEN/CAFFEINE TAB PO ONE (21:00)
[2020-10-10 21:24] VITALS: BP 115/70
== END 2020-10-11 01:01 ==
LOC: ED 18:41
DX: G40.909 Epilepsy, unspecified, not intractable, without status epilepticus (principal); F17.200 Nicotine dependence, unspecified, uncomplicated; Z88.0 Allergy status to penicillin; Z88.8 Allergy status to other drugs, medicaments and biological substances
CPT/HCPCS: 36415; 70450; 72125; 80048; 83735; 85025; 96365; 96366; 96375; 99284; J1953; J2060

== ENCOUNTER 2020-10-11 12:22 | Emergency (ER) | payer SELFPAY ==
[2020-10-11 12:51] VITALS: BP 126/77
[2020-10-11] MEDS ORDERED: IBUPROFEN 600 MG TAB PO ONE ×2 (12:55)
--- NOTE | 2020-10-11 12:56 | Event Note ---
ED Screening Note Date of service: 10/11/20 Time: 12:53 ED Screening Note: This initial assessment/diagnostic orders/clinical plan/treatment(s) is/are subject to change based on patients health status, clinical progression and re- assessment by fellow clinical providers in the ED. Further treatment and workup at subsequent clinical providers discretion. Patient/guardian urged not to elope from the ED as their condition may be serious if not clinically assessed and managed. Initial orders include:
[2020-10-11] MEDS ORDERED: LORazepam 2 MG/ML VIAL IV ONE (13:37)
[2020-10-11] MEDS ORDERED: LORazepam 2 MG/ML VIAL ONE (13:37)
[2020-10-11] MEDS ORDERED: LORazepam 2 MG/ML VIAL IV PRN (13:37)
[2020-10-11] MEDS ORDERED: levETIRAcetam 1000 MG/NS 0.75% 1,000 MG/100 ML BAG IV ONE (13:55)
--- NOTE | 2020-10-11 14:22 | XRay Report ---
XR chest 1V ap INDICATION / CLINICAL INFORMATION: sz vs convulsion pnes. COMPARISON: None available. FINDINGS: SUPPORT DEVICES: None. HEART /PULMONARY VASCULATURE: No significant abnormality. LUNGS / PLEURA: No significant pulmonary or pleural abnormality. No pneumothorax. ADDITIONAL FINDINGS: No significant additional findings. IMPRESSION: 1. No acute findings. Signer Name: Barry Burris MD Signed: 10/11/2020 2:18 PM Workstation Name: [id number]
[2020-10-11 14:24] LABS: Hematocrit 38.6 % (35.5-45.6); Hemoglobin 12.5 gm/dl (11.8-15.2)
[2020-10-11 14:41] LABS: Blood Urea Nitrogen 12 mg/dL (9-20); Calcium 9.3 mg/dL (8.4-10.2); Hemolysis Index 3
[2020-10-11 14:52] LABS: BUN/Creatinine Ratio 17
[2020-10-11] MEDS ORDERED: LACTATED RINGERS 1,000 ML IV ONE ×2 (16:04→16:07)
[2020-10-11] MEDS ORDERED: METOCLOPRAMIDE 10 MG/2 ML INJ IV ONE (16:05)
[2020-10-11] MEDS ORDERED: diphenhydrAMINE 50 MG/ML VIAL IV ONE (16:05)
--- NOTE | 2020-10-11 16:09 | Emergency Department Report ---
ED General Adult HPI - General Chief complaint: Seizure Stated complaint: SEIZURES PUI?: No Time Seen by Provider: 10/11/20 13:35 Source: patient, EMS (EMS documentation reviewed and appreciated), RN notes reviewed, old records reviewed Mode of arrival: Stretcher Limitations: No Limitations - History of Present Illness Initial comments: The patient was evaluated in the emergency department for symptoms described in the history of present illness. He/she was evaluated in the context of the global COVID-19 pandemic, which necessitated consideration that the patient might be at risk for infection with the virus that causes COVID-19. Institutional protocols and algorithms that pertain to the evaluation of patients at risk for COVID-19 are in a state of rapid change based on information released by regulatory bodies including the CDC and federal and state organizations. These policies and algorithms were followed during the patient's care in the emergency department. Please note that these policies, procedures and recommendations changed on a rapid basis. The patient is a 40-year-old gentleman. I have evaluated him in the past. 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 The patient is currently on a 1013. The patient presents to the ER with convulsive activity. The patient was seen in this ER yesterday for convulsive activity. He had appropriate laboratory studies, CT scan of the brain and cervical spine which were negative for acute disease. I have personally evaluated this patient in the past multiple times. Initially upon arrival, the patient was having nonspecific convulsive activity. He was saturating 100% on room air. Accu-Chek was within normal limits The patient is accompanied by an aide from his psychiatric facility. Initially, while convulsing, the patient did not respond to questions or commands. However, the patient's convulsive activity terminated. The patient states that he has a chronic headache. The patient denies neck pain, loss of vision, chest pain, abdominal pain, shortness of breath, loss of taste and loss of smell, and urinary symptoms. He was prescribed Keppra yesterday. As per review of old medical records, patient intolerant of multiple antiepileptic medications, and was previously maintained on Keppra, as well as Neurontin/gabapentin. The patient states he is not homicidal or suicidal. He is asking for caffeinated beverages to consume. -: Sudden Location: face Radiation: non-radiation Severity scale (0 -10): 7 Quality: aching Consistency: intermittent Improves with: none Worsens with: none - Related Data Previous Rx's Medication Instructions Recorded Last Taken Type Gabapentin [Neurontin] 800 mg PO TID #90 tablet 02/12/20 Unknown Rx Gabapentin 100 mg PO Q8HR #90 capsule 02/19/20 Unknown Rx Gabapentin [Neurontin] 800 mg PO TID #90 tablet 02/19/20 Unknown Rx levETIRAcetam [Keppra TAB] 500 mg PO BID #60 tablet 10/10/20 Unknown Rx levETIRAcetam [Keppra TAB] 1,000 mg PO BID #60 tab 10/11/20 Unknown Rx Allergies Allergy/AdvReac Type Severity Reaction Status Date / Time chlorpromazine Allergy Unknown Verified 05/15/18 16:44 [From Thorazine] haloperidol [From Haldol] Allergy Unknown Verified 05/15/18 16:44 phenytoin [From Dilantin] Allergy Rash Verified 05/15/18 16:44 ondansetron [From Zofran] AdvReac Rash Verified 02/12/20 18:55 Penicillins AdvReac Rash Verified 05/15/18 16:44 ED Review of Systems ROS: Stated complaint: SEIZURES Other details as noted in HPI Constitutional: denies: fever Eyes: denies: eye discharge ENT: denies: epistaxis Respiratory: denies: cough Cardiovascular: denies: chest pain Gastrointestinal: denies: abdominal pain Genitourinary: denies: dysuria Musculoskeletal: denies: back pain, arthralgia, myalgia Neurological: headache. denies: weakness Psychiatric: denies: homicidal thoughts, suicidal thoughts ED Past Medical Hx - Past Medical History Previous Medical History?: Yes Hx Seizures: Yes - Surgical History Past Surgical History?: Yes Additional Surgical History: L shoulder - Social History Smoking Status: Current Every Day Smoker Substance Use Type: None - Medications Home Medications: Home Medications Medication Instructions Recorded Confirmed Last Taken Type Gabapentin [Neurontin] 800 mg PO TID #90 tablet 02/12/20 Unknown Rx Gabapentin 100 mg PO Q8HR #90 capsule 02/19/20 Unknown Rx Gabapentin [Neurontin] 800 mg PO TID #90 tablet 02/19/20 Unknown Rx levETIRAcetam [Keppra TAB] 500 mg PO BID #60 tablet 10/10/20 Unknown Rx levETIRAcetam [Keppra TAB] 1,000 mg PO BID #60 tab 10/11/20 Unknown Rx ED Physical Exam - General Limitations: No Limitations General appearance: alert, in no apparent distress - Head Head exam: Present: atraumatic, normocephalic - Eye Eye exam: Present: normal appearance, PERRL, EOMI. Absent: nystagmus - ENT ENT exam: Present: normal exam, normal orophraynx, mucous membranes moist, normal external ear exam - Neck Neck exam: Present: normal inspection, full ROM. Absent: tenderness, meningismus - Respiratory Respiratory exam: Present: normal lung sounds bilaterally. Absent: respiratory distress, wheezes, rales, rhonchi, stridor, decreased breath sounds - Cardiovascular Cardiovascular Exam: Present: regular rate, normal rhythm, normal heart sounds. Absent: bradycardia, tachycardia, irregular rhythm, systolic murmur, diastolic murmur, rubs, gallop - GI/Abdominal GI/Abdominal exam: Present: soft. Absent: distended, tenderness, guarding, rebound, rigid, pulsatile mass - Rectal Rectal exam: Present: deferred - Extremities Exam Extremities exam: Present: normal inspection, full ROM, other (2+ pulses noted in the bilateral upper and lower extremities. There is no palpable cord. negative Homans sign. Muscular compartments are soft. The pelvis is stable.). Absent: pedal edema, calf tenderness - Back Exam Back exam: Present: normal inspection, full ROM. Absent: tenderness, CVA tenderness (R), CVA tenderness (L), paraspinal tenderness, vertebral tenderness - Neurological Exam Neurological exam: Present: alert, oriented X3, other (No facial droop. Tongue midline. Extraocular movements intact bilaterally. Facial sensation intact to light touch in V1, V2, V3 distribution bilaterally. 5 and a 5 strength in 4 extremities. Sensation intact to light touch in 4 extremities.). Absent: motor sensory deficit - Psychiatric Psychiatric exam: Present: anxious. Absent: homicidal ideation, suicidal ideation - Skin Skin exam: Present: warm, dry, intact, normal color. Absent: rash ED Course Vital Signs 10/11/20 10/11/20 12:46 12:57 Temperature 97.8 F Pulse Rate 85 Respiratory 18 18 Rate Blood Pressure 126/77 O2 Sat by Pulse 99 Oximetry - Reevaluation(s) Reevaluation #1: 10/11/20 16:20 Differential diagnosis, including but not limited to: Seizure, pseudoseizure, elevated CK Assessment and plan: 40-year-old gentleman whom I have evaluated multiple times in the past, with chronic headaches, chronic convulsive activity, with a suspicion of psychogenic seizures. He had extensive laboratory and radiographic evaluation yesterday. Initially while experiencing his convulsive event today, we lifted up his upper extremity, and he allowed the extremity to gently fall onto the stretcher, avoiding impact onto his body. He is currently awake, with a GCS of 15. He is clinically sober. He denies cough, and urinary symptoms. Do not see indication for repeat neuroimaging. Laboratory studies unremarkable, with the exception of elevated CK. Patient loaded empirically with Keppra. Patient making multiple requests to eat and drink while here. This headache that he is describing today appears to be similar to previous headaches that I personally evaluated him for. Main issue currently is elevated CK. We will give IV fluids. We will continue to monitor the patient. 10/11/20 16:34 Patient refusing further IV intervention. Patient is currently alert, oriented, sober, and exhibits decision-making capacity. He is free from distracting injury. He is alert and oriented x3. We strongly recommended IV placement for IV fluids, for elevated CK level. However, the patient is refusing additional IV attempts and IV fluids. Risks of leaving without further treatment, including renal insufficiency, , disability, paralysis, permanent loss of quality of life were discussed with the patient. He was able to articulate these risks in his own words. This conversation was witnessed by nurse Kassidy Montana. The patient is therefore going to sign out AGAINST MEDICAL ADVICE. ED Medical Decision Making - Lab Data Result diagrams: 10/11/20 14:06 10/11/20 14:06 Vital Signs 10/11/20 10/11/20 12:46 12:57 Temperature 97.8 F Pulse Rate 85 Respiratory 18 18 Rate Blood Pressure 126/77 O2 Sat by Pulse 99 Oximetry Lab Results 10/11/20 10/11/20 10/11/20 Range/Units 14:06 14:06 14:06 Hgb 12.5 (11.8-15.2) gm/dl Hct 38.6 (35.5-45.6) % Plt Count 249 (140-440) K/mm3 Sodium 139 (137-145) mmol/L Potassium 4.5 (3.6-5.0) mmol/L Chloride 101.5 (98-107) mmol/L Carbon Dioxide 25 (22-30) mmol/L Anion Gap 17 mmol/L BUN 12 (9-20) mg/dL Creatinine 0.7 L (0.8-1.3) mg/dL Estimated GFR > 60 ml/min BUN/Creatinine Ratio 17 % Glucose 95 (75-100) mg/dL Calcium 9.3 (8.4-10.2) mg/dL Magnesium 1.90 (1.7-2.3) mg/dL Total Creatine Kinase 45518 H (55-170) units/L Salicylates < 0.3 L (2.8-20.0) mg/dL Acetaminophen (10.0-30.0) ug/mL Plasma/Serum Alcohol (0-0.07) % 10/11/20 10/11/20 Range/Units 14:06 14:06 Hgb (11.8-15.2) gm/dl Hct (35.5-45.6) % Plt Count (140-440) K/mm3 Sodium (137-145) mmol/L Potassium (3.6-5.0) mmol/L Chloride (98-107) mmol/L Carbon Dioxide (22-30) mmol/L Anion Gap mmol/L BUN (9-20) mg/dL Creatinine (0.8-1.3) mg/dL Estimated GFR ml/min BUN/Creatinine Ratio % Glucose (75-100) mg/dL Calcium (8.4-10.2) mg/dL Magnesium (1.7-2.3) mg/dL Total Creatine Kinase (55-170) units/L Salicylates (2.8-20.0) mg/dL Acetaminophen 5.0 L (10.0-30.0) ug/mL Plasma/Serum Alcohol < 0.01 (0-0.07) % - EKG Data -: EKG Interpreted by [place] EKG shows normal: sinus rhythm Rate: normal - EKG Data 10/11/20 16:20 Sinus rhythm, 77 bpm, normal axis, QTC 434 ms, borderline high left ventricular voltage. Not a STEMI I 10/11/20 16:38 - Radiology Data Radiology results: pending, report reviewed, image reviewed CT images from yesterday are reviewed and appreciated X-ray of the chest today is negative for acute finding Critical care attestation.: If time is entered above; I have spent that time in minutes in the direct care of this critically ill patient, excluding procedure time. ED Disposition Clinical Impression: History of seizure, History of headache, Elevated CK Disposition: LEFT AGAINST MED ADVICE Is pt being admited?: No Does the pt Need Aspirin: No Condition: Undetermined Instructions: Creatine Kinase Test Additional Instructions: As we discussed, you have left the hospital/emergency room AGAINST MEDICAL ADVICE. By leaving, you risked , disability, paralysis, permanent loss of quality of life. The ER is open 24 hours a day, 7 days a week. It never closes. Please return to the emergency room right away if and when you change your mind. If you decide not to return to the emergency room, please follow-up with the listed physician referrals as soon as possible. Do not drive or operate motor vehicles for the next 6 months, or until cleared to do so by a primary care doctor or neurologist. Please drink 6 cups of water per day indefinitely. Prescriptions: levETIRAcetam [Keppra TAB] 1,000 mg PO BID #60 tab Referrals: JEOVANY CARTWRIGHT MD [Staff Physician] - 3-5 Days JEAN CASTELLANOS MD [Referring] - 3-5 Days [facility] [Provider Group] - 3-5 Days Forms: AMA Form
[2020-10-11 16:57] LABS: Amphetamine Screen,Urine Negative; Benzodiazepines Screen,Urine Negative; Cannabinoid Screen,Urine Negative; Cocaine Screen,Urine Negative; Methadone Screen,Urine Negative; Opiate Screen,Urine Negative
[2020-10-11] MEDS ORDERED: BUTALB/ACETAMINOPHEN/CAFFEINE TAB PO ONE (17:00)
[2020-10-11 17:05] LABS: Bilirubin,Urine NEG (Negative); Blood,Urine NEG (Negative); Color,Urine Straw (Yellow); Protein,Urine <15 mg/dL mg/dL (Negative); Urobilinogen,Urine < 2.0 mg/dL (<2.0)
[2020-10-11 17:23] LABS: RBC,Urine < 1.0 /HPF (0.0-6.0); WBC,Urine < 1.0 /HPF (0.0-6.0)
== END 2020-10-11 17:17 | disposition left against medical advice (07) ==
LOC: ED 12:22
DX: R74.8 Abnormal levels of other serum enzymes (principal); F17.200 Nicotine dependence, unspecified, uncomplicated; Z79.899 Other long term (current) drug therapy; Z88.0 Allergy status to penicillin; Z88.8 Allergy status to other drugs, medicaments and biological substances; Z98.890 Other specified postprocedural states
CPT/HCPCS: 36415; 71045; 80048; 80307; 81001; 82550; 83735; 85014; 85018; 85049; 93005; 96374; 99284; J1953; J2060; 80320; G0480